=== PATIENT | male | born 1975 | race Caucasian/White ===

== ENCOUNTER 2023-05-22 17:18 | Emergency (ER) | payer BC ==
[2023-05-22 18:24] LABS: BASOPHILS PERCENT AUTO 0.6 % (0.0-1.0); EOSINOPHILS ABSOLUTE AUTO 0.3 K/mm3 (0.0-0.4); EOSINOPHILS PERCENT AUTO 4.4 % (0.0-6.0); HEMATOCRIT 40.7 % (42.0-52.0); HEMOGLOBIN 14.8 gm/dl (14.0-18.0); IMMATURE GRAN ABSOLUTE AUTO 0.02 K/mm3 (0.00-0.05); IMMATURE GRAN PERCENT AUTO 0.3 % (0.0-0.4); LYMPHOCYTES ABSOLUTE AUTO 1.8 K/mm3 (1.0-4.8); LYMPHOCYTES PERCENT AUTO 27.6 % (24.0-44.0); MEAN CORPUSCULAR HGB CONC 36.4 g/dl (32.0-36.0); MEAN CORPUSCULAR VOLUME 82.4 fl (83.0-99.0); MEAN PLATELET VOLUME 9.2 fl (9.4-12.4); MONOCYTES ABSOLUTE AUTO 0.4 K/mm3 (0.0-0.8); MONOCYTES PERCENT AUTO 5.8 % (0.0-8.0); NEUTROPHILS ABSOLUTE AUTO 3.9 K/mm3 (1.8-7.7); NEUTROPHILS PERCENT AUTO 61.3 % (41.0-71.0); PLATELET COUNT,PLT 221 K/mm3 (150-400); RED BLOOD CELL COUNT 4.94 M/mm3 (4.52-5.90); WHITE BLOOD CELL COUNT,WBC 6.35 K/mm3 (3.9-11.3)
[2023-05-22] MEDS: Labetalol 100 MG/20 ML MDV IVPUSH ONE ×2 (18:32→19:13)
[2023-05-22] MEDS: Sodium Chloride 0.9% 10 ML Syringe FLUSH PRN (18:32)
[2023-05-22 18:50] LABS: A/G RATIO 1.1 (1-2); ALBUMIN 4.1 g/dl (3.4-5.0); ANION GAP 14.3 (5-15); BILIRUBIN TOTAL 0.7 mg/dL (0.2-1.0); BUN/CREATININE RATIO 12.7 (14-18); C-REACTIVE PROTEIN 0.3 mg/dL (<1.0); CALCIUM 9.1 mg/dL (8.5-10.1); CREATININE 1.1 mg/dL (0.7-1.3); EST CRCL DRUG DOSING (CG) 83.88 mL/min; POTASSIUM,K 4.3 mEq/L (3.5-5.1)
[2023-05-22 19:22] LABS: CORONAVIRUS COVID-19 NAA NEGATIVE (NEGATIVE); INFLUENZA A NAA NEGATIVE (NEGATIVE); RESPIRATORY SYNCYTIAL VIR NAA NEGATIVE (NEGATIVE)
[2023-05-22] MEDS: hydrALAZINE 20 MG/ML SDV IVPUSH ONE (20:33)
== END 2023-05-22 20:11 | disposition home or self-care (01) ==
LOC: JD.ED 17:18
DX: I10 Essential (primary) hypertension (principal); Z79.899 Other long term (current) drug therapy
CPT/HCPCS: 0241U; 36415; 71046; 80053; 84484; 85025; 85379; 86140; 93005; 96374; 96376; 99285; J1921; J3490